=== PATIENT | female | born 1980 | race Caucasian/White ===

== ENCOUNTER 2018-05-13 11:43 | Emergency (ER) | payer SELFPAY ==
[~2018-05-13 11:43] MED LIST: Sodium Chloride Irrig Solution 250 ML BOT ONE
[2018-05-13] MEDS ORDERED: Adacel (T-DAP) 0.5 ML SYRINGE ONE (11:59)
[2018-05-13] MEDS ORDERED: Lidocaine 1% 20 ML MDV ONE (11:59)
[2018-05-13] MEDS ORDERED: Bacitracin Zinc 1 Packet ONE (12:23)
== END 2018-05-13 12:35 | disposition home or self-care (01) ==
LOC: MADERS 11:43
DX: S61.012A Laceration without foreign body of left thumb without damage to nail, initial encounter (principal); W26.0XXA Contact with knife, initial encounter
CPT/HCPCS: 12001; 90471; 90715; J2001